=== PATIENT | male | born 1995 | race Caucasian/White ===

== ENCOUNTER 2018-05-14 18:37 | Emergency (ER) | payer OTHER ==
[~2018-05-14] VITALS: Ht 170.2 cm; Wt 86.2 kg
[2018-05-14 18:44] VITALS: Ht 170.2 cm; Wt 86.2 kg
[2018-05-14 21:48] VITALS: BP 121/75
== END 2018-05-14 21:48 | disposition home or self-care (01) ==
LOC: ED 18:37
DX: F41.9 Anxiety disorder, unspecified (principal); R07.89 Other chest pain; F15.20 Other stimulant dependence, uncomplicated; F17.210 Nicotine dependence, cigarettes, uncomplicated
CPT/HCPCS: Q0092

== ENCOUNTER 2019-09-14 14:34 | Emergency (ER) | payer OTHER ==
[~2019-09-14] VITALS: Ht 170.2 cm; Wt 76.7 kg
[2019-09-14 14:45] VITALS: Ht 170.2 cm; Wt 76.7 kg
[2019-09-14 15:37] VITALS: BP 132/88
== END 2019-09-14 15:37 | disposition home or self-care (01) ==
LOC: ED 14:34
DX: M54.12 Radiculopathy, cervical region (principal); F41.9 Anxiety disorder, unspecified

== ENCOUNTER 2020-02-28 06:28 | Emergency (ER) | payer OTHER ==
[~2020-02-28] VITALS: Ht 172.7 cm; Wt 73.0 kg
[2020-02-28 06:42] VITALS: Ht 172.7 cm; Wt 73.0 kg
[2020-02-28 08:03] LABS: CALCIUM 9.3 mg/dL (8.5-10.1); CARBON DIOXIDE 28 mmol/L (21-32); CHLORIDE SERUM 102 mmol/L (98-107); CREATININE SERUM 0.8 mg/dL (0.7-1.3); GFR1 > 60 mL/min; GLUCOSE SERUM 94 mg/dL (74-106); POTASSIUM SERUM 3.3 mmol/L (3.5-5.1); SODIUM SERUM 138 mmol/L (136-145)
[2020-02-28 08:52] LABS: BASOPHIL % 0.4 % (0-2); PLATELET COUNT 237 x10^3mcL (130-400); RED CELL DISTRIBUTION WIDTH 12.4 % (11.5-14.5)
[2020-02-28 09:32] VITALS: BP 102/58
== END 2020-02-28 09:58 | disposition home or self-care (01) ==
LOC: ED 06:28
PROVIDERS: Emergency Medicine
DX: E87.6 Hypokalemia (principal); R20.2 Paresthesia of skin; M54.2 Cervicalgia; R20.0 Anesthesia of skin; R51 Headache
CPT/HCPCS: J0780; Q0163